=== PATIENT | female | born 1990 ===

== ENCOUNTER 2021-02-16 12:20 | Emergency (ER) | payer BC ==
[2021-02-16] MEDS ORDERED: Sodium Chloride 0.9% 10 ML Syringe FLUSH PRN (12:40)
[2021-02-16] MEDS ORDERED: Sodium Chloride 0.9% 1,000 ML IV SCH (12:45)
[2021-02-16 13:15] LABS: ANION GAP 14.3 meq/L (7-15); CHLORIDE,CL 105 mmol/L (98-107); SODIUM,NA 142 mmol/L (136-145)
[2021-02-16] MEDS ORDERED: HYDROmorphone 0.5 MG/0.5 ML Syringe IVPUSH ONE (14:34)
[2021-02-16] MEDS ORDERED: Ketorolac 30 MG/ML SDV IVPUSH ONE (14:34)
--- NOTE | 2021-02-16 14:43 | EDM.PDOC ---
ED HPI GENERAL MEDICAL PROBLEM - General Chief Complaint: Genitourinary Problem Stated Complaint: vaginal bleeding Time Seen by Provider: 02/16/21 13:00 Source of Information: Reports: Patient History Limitations: Reports: No Limitations - History of Present Illness INITIAL COMMENTS - FREE TEXT/NARRATIVE: Patient comes to ER with heavier than normal menstrual bleeding and cramps. Has irregular periods and history of PCOS. Last menstrual period 38 days prior. Denies chance of . Feeling woozy at times. On day 3. No nausea/emesis. No other acute changes/complaints during ROS. uterine cramping Pain Score (Numeric/FACES): 7 - Related Data Allergies Allergy/AdvReac Type Severity Reaction Status Date / Time Penicillins AdvReac Nausea and Verified 02/16/21 12:30 Vomiting Home Meds: Home Meds Ibuprofen 800 mg PO Q6H PRN 02/16/21 [History] Sertraline [Zoloft] 50 mg PO DAILY 02/16/21 [History] medroxyPROGESTERone [Provera] 10 mg PO DAILY #10 tab 02/16/21 [Rx] metFORMIN HCl [Metformin HCl ER] 500 mg PO DAILY 02/16/21 [History] Past Medical History Cardiovascular History: Reports: None Respiratory History: Reports: None Gastrointestinal History: Reports: Cholelithiasis [employer] History: Reports: Polycystic Ovaries, , Spontaneous , Other (See Below) 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 Musculoskeletal History: Reports: Fracture Psychiatric History: Reports: Anxiety, Depression - Past Surgical History GI Surgical History: Reports: Cholecystectomy Female Surgical History: Reports: D&C, Other (See Below) Other Female Surgeries/Procedures: 2 exploratory laporotomies- D&C due to partial placenta delivery with 3rd delivery of child Musculoskeletal Surgical History: Reports: Other (See Below) Other Musculoskeletal Surgeries/Procedures:: R) ankle fracture with repair Social & Family History - Tobacco Use Tobacco Use Status *Q: Current Every Day Tobacco User Years of Tobacco use: 7 Packs/Tins Daily: 0.2 ED ROS GENERAL - Review of Systems Review Of Systems: Comprehensive ROS is negative, except as noted in HPI. ED EXAM, GENERAL - Physical Exam Exam: See Below Exam Limited By: No Limitations General Appearance: Alert, WD/WN, Anxious Eye Exam: Bilateral Eye: EOMI, PERRL Ears: Normal External Exam, Normal Canal, Hearing Grossly Normal Nose: Normal Inspection Throat/Mouth: Normal Inspection, Normal Lips, Normal Voice, No Airway Compromise Head: Atraumatic, Normocephalic Neck: Supple, Non-Tender, Full Range of Motion Respiratory/Chest: No Respiratory Distress, Lungs Clear, Normal Breath Sounds, No Accessory Muscle Use Cardiovascular: Regular Rate, Rhythm, No Murmur GI/Abdominal: Normal Bowel Sounds, Soft, Tender (mild tenderness suprapubic area). No: Guarding, Rigid, Rebound, Abnormal Bowel Sounds (Female) Exam: Deferred Rectal (Female) Exam: Deferred Back Exam: Normal Inspection Extremities: Normal Inspection, Normal Capillary Refill Neurological: Alert, Oriented, Normal Cognition, Normal Gait, No Motor/Sensory Deficits Psychiatric: Normal Affect, Normal Mood Skin Exam: Warm, Dry, Intact, Normal Color Course - Vital Signs Last Recorded V/S: Last Vital Signs Temp 36.1 C 02/16/21 12:30 Pulse 76 02/16/21 12:30 Resp 16 02/16/21 12:30 BP 128/81 02/16/21 12:30 Pulse Ox 98 02/16/21 12:30 - Orders/Labs/Meds Labs: Laboratory Tests 02/16/21 02/16/21 Range/Units 12:48 12:48 WBC 6.6 (4.0-10.2) K/uL RBC 4.69 (3.77-5.09) M/uL Hgb 12.8 (11.7-15.5) g/dL Hct 38.4 (34.0-46.0) % MCV 81.9 L (84.0-98.0) fL MCH 27.3 L (28.2-33.3) pg MCHC 33.3 (31.7-36.0) g/dL RDW 13.1 (11.2-14.1) % Plt Count 189 (150-350) K/uL Neut % (Auto) 60.0 (45.0-80.0) % Lymph % (Auto) 30.8 (10.0-50.0) % Simpson % (Auto) 7.3 (2.0-14.0) % Eos % (Auto) 1.7 (0.0-5.0) % Baso % (Auto) 0.2 (0.0-2.0) % Neut # (Auto) 3.97 (1.40-7.00) K/uL Lymph # (Auto) 2.03 (0.50-3.50) K/uL Simpson # (Auto) 0.48 (0.00-1.00) K/uL Eos # (Auto) 0.11 (0.00-0.50) K/uL Baso # (Auto) 0.01 (0.00-0.20) K/uL Sodium 142 (136-145) mmol/L Potassium 4.0 (3.5-5.1) mmol/L Chloride 105 (98-107) mmol/L Carbon Dioxide 22.7 (21.0-32.0) mmol/L Anion Gap 14.3 (7-15) meq/L BUN 14 (7-18) mg/dL Creatinine 0.99 (0.51-1.17) mg/dL Est Cr Clr Drug Dosing TNP Estimated GFR (MDRD) > 60 mL/min Glucose 94 (70-99) mg/dL Calcium 8.3 L (8.5-10.1) mg/dL Total Bilirubin 0.4 (0.2-1.0) mg/dL AST 22 (15-37) U/L ALT 35 (12-78) U/L Alkaline Phosphatase 74 (46-116) IU/L Total Protein 6.9 (6.4-8.2) g/dL Albumin 3.8 (3.4-5.0) g/dL HCG, Quant 0 mIU/mL Meds: Medications Discontinued Medications Generic Name Dose Route Start Last Admin Trade Name Kiki PRN Reason Stop Dose Admin Hydromorphone HCl 0.5 mg 02/16/21 14:34 02/16/21 14:51 Hydromorphone 0.5 Mg/0.5 Ml Syringe IVPUSH 02/16/21 14:35 Not Given ONETIME ONE Sodium Chloride 1,000 mls @ 999 mls/hr 02/16/21 12:45 02/16/21 12:50 Normal Saline IV 02/16/21 13:46 999 mls/hr ASDIRECTED SUKHDEEP Administration Ketorolac Tromethamine 30 mg 02/16/21 14:34 02/16/21 14:46 Ketorolac 30 Mg/Ml Sdv IVPUSH 02/16/21 14:35 30 mg ONETIME ONE Administration Sodium Chloride 10 ml 02/16/21 12:40 02/16/21 14:47 Sodium Chloride 0.9% 10 Ml Syringe FLUSH 10 ml ASDIRECTED PRN Administration Keep Vein Open - Re-Assessments/Exams Free Text/Narrative Re-Assessment/Exam: 02/16/21 14:43 Negative test/normal labs overall. Discussed patient with /[facility]. Prolonged pt stay as it took over almost an hour to receive a call back for phone consult. He recommended curse of Provera or Megace, neither of which are carried at our facility. Rx for Provera 10 day course given to patient. She can drive to [place] today to get it filled or see if local pharmacy can fill it tomorrow morning when local pharmacies open. She thinks she will wait until tomorrow. To return to ER if she has sudden worsening problems. Received IV NS 1 liter bolus during stay. Toradol and single dose Dilaudid for pain/cramping. Send home with #10 Tylenol #3 tabs for prn use. Departure - Departure Time of Disposition: 14:37 Disposition: Home, Self-Care 01 Condition: Good Clinical Impression: Menorrhagia with irregular cycle - Discharge Information *PRESCRIPTION DRUG MONITORING PROGRAM REVIEWED*: Not Applicable *COPY OF PRESCRIPTION DRUG MONITORING REPORT IN PATIENT MICHAEL: Not Applicable Prescriptions: medroxyPROGESTERone [Provera] 10 mg PO DAILY #10 tab Instructions: Menorrhagia Referrals: Sisi Nolasco PA-C [Primary Care Provider] - Forms: ED Department Discharge Additional Instructions: Follow up as needed for worsening problems. Follow up with [facility] to discuss if there are better options for bleeding control during periods. Take Tylenol #3 one every 4-6 hours with food to help with pain. Remember to adjust your plain tylenol dose accordingly so you do not overdose on daily tylenol totals. Sepsis Event Note (ED) - Evaluation Sepsis Screening Result: No Definite Risk
== END 2021-02-16 15:15 | disposition home or self-care (01) ==
LOC: LL.ED 12:20
DX: N92.0 Excessive and frequent menstruation with regular cycle (principal); Z88.0 Allergy status to penicillin; Z79.84 Long term (current) use of oral hypoglycemic drugs; Z72.0 Tobacco use
CPT/HCPCS: 80053; 84702; 85025; 96374; 99284; J1885; J7030; 99283